=== PATIENT | female | born 1975 | race Caucasian/White ===

== ENCOUNTER 2018-08-09 12:46 | Emergency (ER) | payer SELFPAY ==
--- NOTE | 2018-08-09 13:49 | EDM.PDOC ---
ED HPI GENERAL MEDICAL PROBLEM - General Chief Complaint: Skin Complaint Stated Complaint: ALL OVER RASH Time Seen by Provider: 08/09/18 13:45 - History of Present Illness INITIAL COMMENTS - FREE TEXT/NARRATIVE: HISTORY AND PHYSICAL: History of present illness: The patient is a healthy 42-year-old female who presents with a rash mostly concentrated on her hands and forearms bilaterally as well as some scattered areas on her anterior neck and some areas on her face. This rash started about 2 days ago and she is concerned that she may have contacted something at work that triggered it. She says it is itchy and burning and she has not tried anything [id number]. She has no oral swelling or pain no shortness of breath and no other systemic issues. Review of systems: As per history of present illness and below otherwise all systems reviewed and negative. Past medical history: As per history of present illness and as reviewed below otherwise noncontributory. Surgical history: As per history of present illness and as reviewed below otherwise noncontributory. Social history: No reported history of drug or alcohol abuse. Family history: As per history of present illness and as reviewed below otherwise noncontributory. Physical exam: General: Well-developed well-nourished female who is nontoxic and speaking clearly and easily in the ED. Vital signs are noted by me HEENT: Atraumatic, normocephalic, pupils reactive, negative for conjunctival pallor or scleral icterus, mucous membranes moist, throat clear, neck supple, nontender, trachea midline. There are no oral pharyngeal lesions and no soft tissue swelling is seen of the face or mouth Lungs: Clear to auscultation, breath sounds equal bilaterally, chest nontender. No wheezing or stridor Heart: S1S2, regular rate and rhythm no overt murmurs Abdomen: Soft, nondistended, nontender. NABS Pelvis: Deferred Genitourinary: Deferred. Rectal: Deferred. Extremities: Atraumatic, negative for cords or calf pain. Neurovascular unremarkable. Neuro: Awake, alert, oriented. Cranial nerves II through XII unremarkable. Cerebellum unremarkable. Motor and sensory unremarkable throughout. Exam nonfocal. Skin: There are multiple urticarial areas seen on the hands and forearms bilaterally as well as some scattered areas on the anterior neck and chest wall and one or 2 on the face and neck as well as 2 or 3 on the lumbar spine area. There are no vesicles seen and no surrounding erythema Diagnostics: [] Therapeutics: Vistaril by mouth Impression: Contact reaction Definitive disposition and diagnosis as appropriate pending reevaluation and review of above. - Related Data Allergies Allergy/AdvReac Type Severity Reaction Status Date / Time No Known Allergies Allergy Verified 08/09/18 13:14 Home Meds: Home Meds . [No Known Home Meds] 08/09/18 [History] Past Medical History - Past Health History Medical/Surgical History: Denies Medical/Surgical History Social & Family History - Family History Family Medical History: Noncontributory - Tobacco Use Smoking Status *Q: Current Every Day Smoker Years of Tobacco use: 15 Packs/Tins Daily: 0.5 - Caffeine Use Caffeine Use: Reports: Coffee - Recreational Drug Use Recreational Drug Use: No ED ROS GENERAL - Review of Systems Review Of Systems: ROS reveals no pertinent complaints other than HPI. ED EXAM, SKIN/RASH Exam: See Below (See dictation) Course - Vital Signs Last Recorded V/S: Last Vital Signs Temp 36.5 C 08/09/18 13:13 Pulse 93 08/09/18 13:13 Resp 18 08/09/18 13:13 BP 131/74 08/09/18 13:13 Pulse Ox 95 08/09/18 13:13 - Orders/Labs/Meds Orders: Active Orders 24 hr Category Date Time Status hydrOXYzine pamoate [Vistaril] Med 08/09/18 13:51 Once 25 mg PO ONETIME ONE Departure - Departure Time of Disposition: 13:53 Disposition: Home, Self-Care 01 Condition: Good Clinical Impression: Contact allergic reaction - Discharge Information Referrals: PCP,None [Primary Care Provider] - Forms: ED Department Discharge Additional Instructions: The following information is given to patients seen in the emergency department who are being discharged to home. This information is to outline your options for follow-up care. We provide all patients seen in our emergency department with a follow-up referral. The need for follow-up, as well as the timing and circumstances, are variable depending upon the specifics of your emergency department visit. If you don't have a primary care physician on staff, we will provide you with a referral. We always advise you to contact your personal physician following an emergency department visit to inform them of the circumstance of the visit and for follow-up with them and/or the need for any referrals to a consulting specialist. The emergency department will also refer you to a specialist when appropriate. This referral assures that you have the opportunity for followup care with a specialist. All of these measure are taken in an effort to provide you with optimal care, which includes your followup. Under all circumstances we always encourage you to contact your private physician who remains a resource for coordinating your care. When calling for followup care, please make the office aware that this follow-up is from your recent emergency room visit. If for any reason you are refused follow-up, please contact the [facility] emergency department at and ask to speak to the emergency department charge nurse. [facility] [address] [address] Continue to monitor the symptoms and call and schedule a follow-up appointment in our clinic with one of our providers for reevaluation and further care. Use [id number] Benadryl if 2 mg every 6 hours for the next 36 hours and then every 6 hours as needed. Please take the Medrol Dosepak as prescribed starting today. Return to ER as needed and as discussed - My Orders Last 24 Hours: My Active Orders 08/09/18 13:51 hydrOXYzine pamoate [Vistaril] 25 mg PO ONETIME ONE - Assessment/Plan Last 24 Hours: My Active Orders 08/09/18 13:51 hydrOXYzine pamoate [Vistaril] 25 mg PO ONETIME ONE
[2018-08-09] MEDS ORDERED: hydrOXYzine Pamoate 25 MG Cap PO ONE (13:51)
== END 2018-08-09 14:32 | disposition home or self-care (01) ==
LOC: MW.ED 12:46
DX: L50.0 Allergic urticaria (principal); F17.210 Nicotine dependence, cigarettes, uncomplicated
CPT/HCPCS: 99282; A9270

== ENCOUNTER 2019-04-10 16:03 | Emergency (ER) | payer OTHER, MEDICAID ==
--- NOTE | 2019-04-10 17:07 | EDM.PDOC ---
ED HPI GENERAL MEDICAL PROBLEM - General Chief Complaint: ENT Problem Stated Complaint: SINUS INFECTION Time Seen by Provider: 04/10/19 16:40 - History of Present Illness INITIAL COMMENTS - FREE TEXT/NARRATIVE: HPI 43-year-old female presents for evaluation of sinus congestion, bilateral ear pressure and fullness for approximately 3 weeks company by a gradual onset typical headache that is most prominent in the morning and reduces after the patient treats deferred sinus congestion with nasal spray. Headache has been responsive to acetaminophen but recurs. No identifiable carbon monoxide sources , no history of DVT, PE, no recent pregnancies, currently not . No changes in vision or hearing. Denies a history trauma, diabetes, dental, or jaw pain. M/S/F/SocHx notable for: please see HPI; remainder reviewed with patient and in chart. ROS: Negative constitutional, eye, cardiovascular, pulmonary, GI, , MSK, skin , neurologic, psychiatric, endocrine unless noted in the HPI. Exam HR 83, RR 18, BP 120/87, T 36.3C, SaO2 94% on room air. Gen: Pleasant, non-toxic appearing, resting comfortably. Head: Normocephalic, atraumatic. Ears - Left TM with a dependent purulent effusion, with the external auditory canal without erythema, inflammation, or swelling, mastoid nontender without overlying erythema, swelling, tenderness to palpation, or warmth. - Right TM with a dependent purulent effusion, with the external auditory canal without erythema, inflammation, or swelling, mastoid nontender without overlying erythema, swelling, tenderness to palpation, or warmth. Eyes - Bilateral eyes without injection, swelling, or discharge, EOMI without pain, no proptosis or periorbital erythema, swelling, warmth, or tenderness. Mouth - Anterior oropharynx with MMM, no lesions appreciated, floor of the mouth is soft and without swelling. Posterior oropharynx without swelling, exudate, erythema, lesions, or post-nasal drip, uvula midline. Nose - Nares without crusting or discharge. Neck - Neck supple without posterior anterior cervical chain lymphadenopathy bilaterally. Resp: Clear to auscultation bilaterally, normal work of breathing without accessory muscle usage. Card: Regular rate and rhythm with no murmurs, rubs or gallops. Extremities warm and well perfused. GI: Non-tender to palpation throughout all quadrants, no masses or organomegaly appreciated. : Deferred MSK: No visible deformities, strength and tone visually normal. Skin: Normal color with no visible lesions. Neuro: alert and oriented 3, no facial asymmetry, no gaze preference, no slurring of speech. Pupils equal and reactive, EOMI, no facial asymmetry, no nystagmus, phonation intact, SCM 5/5 bilaterally. Cerebellar: bilateral upper extremities without dysmetria. Heme: Deferred MDM Previous chart, nursing note, and vitals reviewed. A: 43-year-old female presents for evaluation of sinus congestion, bilateral ear pressure and fullness for approximately 3 weeks company by a gradual onset typical headache that is most prominent in the morning and reduces after the patient treats deferred sinus congestion with nasal spray. Evaluation: history and exam consistent with chronic bilateral otitis media, suspect concurrent sinusitis complement, unclear if due to an ongoing bacterial process or resolved infection now with continuation due to rhinitis medicamentosa. Recommend discontinuation of OTC nasal spray, prescribed take his own, due to effusion spine each year the patient was prescribed azithromycin and instructed to take ibuprofen for headache, patient to follow up with PCP in 3-4 days for repeat evaluation. No concerning features identified with respect to the patients headaches, i.e. neuro imaging is not presently warranted nor is an LP. Impression: sinusitis, otitis media, headache. sinus Pain Score (Numeric/FACES): 3 - Related Data Allergies Allergy/AdvReac Type Severity Reaction Status Date / Time No Known Allergies Allergy Verified 04/10/19 16:21 Home Meds: Home Meds Azithromycin [Zithromax] 250 mg PO DAILY #6 tab 04/10/19 [Rx] Escitalopram [Lexapro] 20 mg PO DAILY 04/10/19 [History] Fluticasone Furoate [Flonase Sensimist] 9.1 ml NS DAILY #1 spray.susp 04/10/19 [ Rx] Meloxicam [Qmiiz Odt] 1 tab PO DAILY 04/10/19 [History] Past Medical History - Past Health History Medical/Surgical History: Denies Medical/Surgical History HEENT History: Reports: None Cardiovascular History: Reports: None Respiratory History: Reports: None Gastrointestinal History: Reports: None Genitourinary History: Reports: None 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 Musculoskeletal History: Reports: None Neurological History: Reports: None Psychiatric History: Reports: None Endocrine/Metabolic History: Reports: None Hematologic History: Reports: None Immunologic History: Reports: None Oncologic (Cancer) History: Reports: None Dermatologic History: Reports: None - Infectious Disease History Infectious Disease History: Reports: Hepatitis C - Past Surgical History Head Surgeries/Procedures: Reports: None HEENT Surgical History: Reports: None Cardiovascular Surgical History: Reports: None Respiratory Surgical History: Reports: None GI Surgical History: Reports: None Female Surgical History: Reports: None Endocrine Surgical History: Reports: None Neurological Surgical History: Reports: None Musculoskeletal Surgical History: Reports: None Oncologic Surgical History: Reports: None Dermatological Surgical History: Reports: None Social & Family History - Family History Family Medical History: Noncontributory - Tobacco Use Smoking Status *Q: Current Every Day Smoker Years of Tobacco use: 15 Packs/Tins Daily: 0.2 - Caffeine Use Caffeine Use: Reports: Coffee - Recreational Drug Use Recreational Drug Use: No ED ROS GENERAL - Review of Systems Review Of Systems: See Below ED EXAM, GENERAL - Physical Exam Exam: See Below Course - Vital Signs Last Recorded V/S: Last Vital Signs Temp 36.3 C 04/10/19 16:22 Pulse 83 04/10/19 16:22 Resp 18 04/10/19 16:22 BP 127/87 04/10/19 16:22 Pulse Ox 94 L 04/10/19 16:22 Departure - Departure Time of Disposition: 17:04 Disposition: Home, Self-Care 01 Clinical Impression: Otitis media - Discharge Information Prescriptions: Azithromycin [Zithromax] 250 mg PO DAILY #6 tab Fluticasone Furoate [Flonase Sensimist] 9.1 ml NS DAILY #1 spray.susp Referrals: PCP,None [Primary Care Provider] - Additional Instructions: You were in seen in the [facility] Emergency Department for evaluation of of your pain, headache, and sinus congestion. You are believed to have sinusitis with ongoing bilateral ear infections. You have been prescribed azithromycin and fluticasone nasal spray. Please discontinue taking [id number] nasal spray decongestants. You may take ibuprofen and acetaminophen as directed below for treatment of your headache. Please read and follow all of the instructions below. Please follow up with your primary care physician in 3-4 days for repeat evaluation. When calling for follow-up care, please make the office aware that this follow-up is from your recent emergency room visit. If for any reason you are refused follow-up, please contact the [facility] Emergency Department at and asked to speak to the emergency department charge nurse. Your care today was limited to identifying and treating emergent medical problems only. Many people have subtle differences in their test results that require follow up with their outpatient physician(s) to correctly determine if this represents a normal variation or concerning abnormality with respect to your specific health. The care given to you today was limited to identifying and treating emergent medical problems - you need to request a copy of all of your medical records from today's visit and follow up with your outpatient physician(s) to review both today's visit and your overall health. If you have any new symptoms or if you are at all concerned about your health please return immediately to the emergency department. Acute otitis media - Infection of the middle ear. You were diagnosed with an infection of middle ear. These infections are most commonly caused by viruses and bacteria. Based upon the exam today, it appears that you have a bacterial infection. Expect the symptoms to remain similar or slightly worsen over the next 12- 24 hours. After that you should start noticing an improvement with treatment. Please take the full course of the prescribed antibiotic, even if you feel better. However, if you believe you are having a drug reaction, please discontinue the medication and follow up with your primary care physician or return to the emergency department (please read the drug precautions below). Please return to the emergency department if you have a headache, neck stiffness, rash, becomes sensitive to bright light, are lethargic, or if you are otherwise concerned about your health. If you have not significantly improved over the next 2-3 days, please follow up promptly with your physician for a repeat evaluation. Rarely a new infection may be present or a change in antibiotics may be needed. Azithromycin (Brand Names: Zmax) Please take this medication as prescribed. Please take the medication for the full duration of the precription. If you feel you are experiencing a side effect, please call your physician or the emergency department. Azithromycin Side Effects: Stomach upset, diarrhea/loose stools, nausea, vomiting, or abdominal pain may occur. If any of these effects persist or worsen, tell your doctor or pharmacist promptly. Tell your doctor right away if any of these unlikely but serious side effects occur: hearing changes (such as decreased hearing, deafness), eye problems (such as drooping eyelids, blurred vision), difficulty speaking/ swallowing, muscle weakness, signs of liver problems (such as unusual tiredness , persistent nausea/vomiting, severe stomach/abdominal pain, yellowing eyes/skin , dark urine). Get medical help right away if any of these rare but serious side effects occur: fast/irregular heartbeat, severe dizziness, fainting. This medication may rarely cause a severe intestinal condition (Clostridium difficile-associated diarrhea) due to a resistant bacteria. This condition may occur during treatment or weeks to months after treatment has stopped. Do not use anti-diarrhea products or narcotic pain medications if you have any of the following symptoms because these products may make them worse. Tell your doctor right away if you develop: persistent diarrhea, abdominal or stomach pain/ cramping, blood/mucus in your stool. Use of this medication for prolonged or repeated periods may result in oral thrush or a new yeast infection. Contact your doctor if you notice white patches in your mouth, a change in vaginal discharge, or other new symptoms. A very serious allergic reaction to this drug is rare. However, get medical help right away if you notice any symptoms of a serious allergic reaction, including: rash, itching/swelling (especially of the face/tongue/throat), severe dizziness, trouble breathing. An allergic reaction to this medication may return even if you stop the drug. If you have an allergic reaction, continue to watch for any of the above symptoms for several days after your last dose. This is not a complete list of possible side effects. If you notice other effects not listed above, contact your doctor or pharmacist. Azithromycin may cause a condition that affects the heart rhythm (QT prolongation). QT prolongation can rarely cause serious (rarely fatal) fast/ irregular heartbeat and other symptoms (such as severe dizziness, fainting) that need medical attention right away. The risk of QT prolongation may be increased if you have certain medical conditions or are taking other drugs that may cause QT prolongation. Before using azithromycin, tell your doctor or pharmacist of all the drugs you take and if you have any of the following conditions: certain heart problems (heart failure, slow heartbeat, QT prolongation in the EKG), family history of certain heart problems (QT prolongation in the EKG, sudden cardiac ). Low levels of potassium or magnesium in the blood may also increase your risk of QT prolongation. This risk may increase if you use certain drugs (such as diuretics/"water pills") or if you have conditions such as severe sweating, diarrhea, or vomiting. Talk to your doctor about using azithromycin safely. Many drugs besides azithromycin may affect the heart rhythm (QT prolongation ), including amiodarone, disopyramide, dofetilide, dronedarone, ibutilide, pimozide, procainamide, quinidine, sotalol, among others. This drug passes into breast milk. Consult your doctor before breast- feeding. Although most antibiotics are unlikely to affect hormonal control such as pills, patch, or ring, a few antibiotics (such as rifampin, rifabutin) can decrease their effectiveness. This could result in . If you use hormonal control, ask your doctor or pharmacist for more details. You make take over the counter Acetaminophen (Tylenol) and Ibuprofen (Motrin or Aleve) as directed below for relief of pain. Take 600 mg of ibuprofen (three 200 mg tablets) with a glass of water every 6-8 hours as needed for pain or fever. Do not take if you have ulcers, GI bleeding, are , or are allergic to ibuprofen. Take 1,000 mg of acetaminophen (two 500 mg tablets) with a glass of water every 6-8 hours as needed for pain. Do not take if you are allergic to acetaminophen. If you have liver disease, please reduce your dose to a maximum of 2,000 mg per day. You can take these medications at the same time or on separate schedules. Do not take for more than 10 days. Do not take with alcohol or other acetaminophen containing medications. This medication may cause a mildly upset stomach, if so take it with a small snack. Stop taking it if you have persistent abdominal pain, heartburn, or any stomach pain. Do not take this medication if you have known ulcers. Please read the warnings at the end of this document regarding these medications. IBUPROFEN WARNING: This drug may infrequently cause serious (rarely fatal) bleeding from the stomach or intestines. Also, related drugs rarely have caused blood clots to form, resulting in heart attacks and strokes. This medication might also rarely cause similar problems. Talk to your doctor or pharmacist about the benefits and risks of treatment, as well as other possible medication choices. If you notice any of the following rare but very serious side effects, stop taking ibuprofen and seek immediate medical attention: black stools, persistent stomach/abdominal pain, vomit that looks like coffee grounds, chest pain, weakness on one side of the body, sudden vision changes, slurred speech. IBUPROFEN SIDE EFFECTS: Upset stomach, nausea, vomiting, heartburn, headache, diarrhea, constipation, drowsiness, and dizziness may occur. If any of these effects persist or worsen, notify your doctor or pharmacist promptly. If your doctor has directed you to use this medication, remember that he or she has judged that the benefit to you is greater than the risk of side effects. Many people using this medication do not have serious side effects. Tell your doctor immediately if any of these serious side effects occur: stomach pain, swelling of the hands or feet, sudden or unexplained weight gain, ringing in the ears ( tinnitus). Tell your doctor immediately if any of these unlikely but serious side effects occur: vision changes, rapid or pounding heartbeat, easy bruising or bleeding, difficult/painful swallowing. Tell your doctor immediately if any of these highly unlikely but very serious side effects occur: change in amount of urine, severe headache, very stiff neck, mental/mood changes, persistent sore throat or fever. This drug may rarely cause serious (possibly fatal) liver disease. If you notice any of the following highly unlikely but very serious side effects, stop taking ibuprofen and consult your doctor or pharmacist immediately: yellowing eyes and skin, dark urine, unusual/extreme tiredness. An allergic reaction to this drug is unlikely, but seek immediate medical attention if it occurs. Symptoms of an allergic reaction include: rash, itching/ swelling (especially of the face/tongue/throat), severe dizziness, trouble breathing. This is not a complete list of possible side effects. ACETAMINOPHEN SIDE EFFECTS: This drug usually has no side effects. If you do not have liver problems, the maximum dose of acetaminophen for adults is 4 grams per day (4000 milligrams). Taking more than the maximum daily amount may cause serious (possibly fatal) liver damage. Get medical help right away if you have any of the following symptoms of liver damage: persistent nausea/vomiting, extreme tiredness, stomach/abdominal pain, yellowing eyes/skin, dark urine. If you have liver problems, consult your doctor or pharmacist for a safe dosage of this medication. A very serious allergic reaction to this drug is rare. However , get medical help right away if you notice any symptoms of a serious allergic reaction, including: rash, itching/swelling (especially of the face/tongue/ throat), severe dizziness, trouble breathing. This is not a complete list of possible side effects. If you notice other effects not listed above, contact your doctor or pharmacist. DRUG INTERACTIONS: Your healthcare professionals (e.g., doctor or pharmacist) may already be aware of any possible drug interactions and may be monitoring you for it. Do not start, stop or change the dosage of any medicine before checking with them first. This drug should not be used with the following medications because very serious interactions may occur: cidofovir, ketorolac. If you are currently using any of these medications listed above, tell your doctor or pharmacist before starting ibuprofen. Before using this medication, tell your doctor or pharmacist of all prescription and nonprescription/herbal products you may use, especially of: anti-platelet drugs (e.g., cilostazol, clopidogrel), oral bisphosphonates (e.g., alendronate), other medications for arthritis (e.g., aspirin, methotrexate), "blood thinners" (e.g., enoxaparin, heparin, warfarin), corticosteroids (e.g., prednisone), cyclosporine, desmopressin, high blood pressure drugs (including ANUPAMA inhibitors such as captopril, angiotensin II receptor antagonists such as losartan, and beta- blockers such as metoprolol), lithium, pemetrexed, "water pills" (diuretics such as furosemide, hydrochlorothiazide, triamterene). Check all prescription and nonprescription medicine labels carefully for other pain/fever drugs ( NSAIDs such as aspirin, celecoxib, naproxen). These drugs are similar to ibuprofen, so taking one of these drugs while also taking ibuprofen may increase your risk of side effects. Consult your doctor or pharmacist for more details. However, if your doctor has prescribed low doses of aspirin to prevent heart attack or stroke (usually at dosages of 81-325 milligrams a day), you should continue to take the aspirin. Daily use of ibuprofen may decrease aspirin 's ability to prevent heart attack/stroke. Talk to your doctor about using a different medication (e.g., acetaminophen) to treat pain/fever. If you must take ibuprofen, talk to your doctor about possibly taking immediate-release aspirin (not enteric-coated) while also taking the ibuprofen dose apart from your aspirin dose. Do not increase your daily dose of aspirin or change the way you take aspirin/other medications without your doctor's approval. This document does not contain all possible interactions. Therefore, before using this product, tell your doctor or pharmacist of all the products you use. Keep a list of all your medications with you, and share the list with your doctor and pharmacist. Prescriptions: If you are uninsured or have financial difficulties with filling your prescription(s), you may consider using a free pharmacy discount service such as [employer] ([employer]) or [employer] ([employer]). These services allow you to search for a medication on your phone (or computer) and obtain a coupon that usually has a significant discount from the list wells at a pharmacy. Your physician as well as [facility] does not have a financial relationship with either of these services. You may also wish to speak with your physician to determine if lower cost prescriptions are possible. Obtaining primary care: 1. [facility] provides pediatrics (children), family medicine (children, adults, and some obstetrical care), and internal medicine (adults). Further specialty care is also available. Same day appointments are available. They may be contacted at [phone] and are open Tuesday through Tuesday 8 AM to 5 PM. The [facility] are located at [facility], [address] [place] [address]. 2. [facility] offers family medicine, internal medicine, womens health, and further specialty care. [facility] may be contacted at [phone]. [facility] is located at [address] [place] [address]. 3. If you have health insurance, please also contact your insurer for a list of accepting providers under your policy, you may contact these providers for further health care. Occupational health: Work related injuries may consider following up with [facility], . Occupational health services are located at [address] [place] [id number] and are open Tuesday through Tuesday from 7: 30 am to 5:00 pm. Obstetrical and Gynecological Care: [facility], , Tuesday through Tuesday 8 AM to 5 PM. [address] [place] [address]. Eyecare: If you have an eye injury you should follow up with your production line assembler or with [facility], at [phone] or [phone] , they are located at [address] [place] [address]. [facility] Hoang Araujo DDS. [address] [place], [place]. Ph. [phone] Juancarlos Araujo DDS MS. [address] [facility], [place], [place]. Ph. Carlos Rawls DDS. 10 04/[address] [place] [address]. Ph. [phone] Vargas Lima DDS. [address] [facility] 4 [place], [place]. Ph. [phone] Luis Wilson DDS PC. [address] [facility] [address] [place], [place]. Ph. Eugenie Arguelles DDS. [address] [facility] [address] [facility]. Ph. [phone] [facility]. [address] [place], [place]. Ph. [phone] [facility]. [address] [place], [place], [place]. Ph. [phone] [facility] [address] [place] [phone]. Ph. [facility]. [address] [place] [address] [address] [place], [place]. Ph. [facility]. [address] [place], [place]. Ph. [phone] Sepsis Event Note - Evaluation Sepsis Screening Result: No Definite Risk - Focused Exam Vital Signs: Vital Signs Temp Pulse Resp BP Pulse Ox 04/10/19 16:22 36.3 C 83 18 127/87 94 L Date Exam was Performed: 04/10/19 Time Exam was Performed: 17:04
== END 2019-04-10 17:30 | disposition home or self-care (01) ==
LOC: MW.ED 16:03
CPT/HCPCS: 99283

== ENCOUNTER 2019-05-28 19:48 | Emergency (ER) | payer MEDICAID ==
--- NOTE | 2019-05-28 21:24 | EDM.PDOC ---
ED HPI GENERAL MEDICAL PROBLEM - General Chief Complaint: ENT Problem Stated Complaint: SINUS Time Seen by Provider: 05/28/19 21:23 Source of Information: Reports: Patient History Limitations: Reports: No Limitations - History of Present Illness INITIAL COMMENTS - FREE TEXT/NARRATIVE: HISTORY AND PHYSICAL: History of present illness: Patient is a 43-year-old female presents to the ED With complaint of fever, congestion, and ear pain. She states for the past 3 days she has had fever of 102F. She reports headache and pain in her sinuses. She states she was treated for ear infection twice in the last 3 months. She reports still feeling like she has fluid in her left ear. She denies cough, nausea, vomiting, abdominal pain. Patient has taken some sudafed today Review of systems: As per history of present illness and below otherwise all systems reviewed and negative. Past medical history: As per history of present illness and as reviewed below otherwise noncontributory. Surgical history: As per history of present illness and as reviewed below otherwise noncontributory. Social history: No reported history of drug or alcohol abuse. Family history: As per history of present illness and as reviewed below otherwise noncontributory. Physical exam: General: Patient sitting comfortably in no acute distress and nontoxic appearing HEENT: Maxillary sinus tenderness to palpation. TMs are clear bilaterally. No mastoid tenderness. Atraumatic, normocephalic, pupils reactive, negative for conjunctival pallor or scleral icterus, mucous membranes moist, throat clear, neck supple, nontender, trachea midline. No meningeal signs. Lungs: Clear to auscultation, breath sounds equal bilaterally, chest nontender. Heart: S1S2, regular, negative for clicks, rubs, or overt murmur. Abdomen: Soft, nondistended, nontender. Negative for masses or hepatosplenomegaly. Negative for costovertebral tenderness. No rigidity, rebound , guarding. Pelvis: Stable nontender. Genitourinary: Deferred. Rectal: Deferred. Extremities: Atraumatic, negative for cords or calf pain. Neurovascular unremarkable. Neuro: Awake, alert, oriented. Cranial nerves II through XII unremarkable. Cerebellum unremarkable. Motor and sensory unremarkable throughout. Exam nonfocal. Notes: Diagnostics: none Therapeutics: none Prescriptions: augmentin Impression: acute sinusitis Plan: Take antibiotic as instructed Alternate tylenol and motrin as needed Follow up with primary care provider and ENT Return to ED as needed as discussed Definitive disposition and diagnosis as appropriate pending reevaluation and review of above. ear Pain Score (Numeric/FACES): 8 - Related Data Allergies Allergy/AdvReac Type Severity Reaction Status Date / Time No Known Allergies Allergy Verified 04/10/19 16:21 Home Meds: Home Meds . [No Known Home Meds] 05/28/19 [History] Past Medical History - Past Health History Medical/Surgical History: Denies Medical/Surgical History HEENT History: Reports: None Cardiovascular History: Reports: None Respiratory History: Reports: None Gastrointestinal History: Reports: None Genitourinary History: Reports: None [employer]ST History: Reports: None Musculoskeletal History: Reports: None Neurological History: Reports: None Psychiatric History: Reports: None Endocrine/Metabolic History: Reports: None Hematologic History: Reports: None Immunologic History: Reports: None Oncologic (Cancer) History: Reports: None Dermatologic History: Reports: None - Infectious Disease History Infectious Disease History: Reports: Hepatitis C - Past Surgical History Head Surgeries/Procedures: Reports: None HEENT Surgical History: Reports: Adenoidectomy, Myringotomy w Tube(s), Tonsillectomy Cardiovascular Surgical History: Reports: None Respiratory Surgical History: Reports: None GI Surgical History: Reports: None Female Surgical History: Reports: Tubal Ligation Other Female Surgeries/Procedures: tubal lig reversal Endocrine Surgical History: Reports: None Neurological Surgical History: Reports: None Musculoskeletal Surgical History: Reports: Arthroscopic Procedure Oncologic Surgical History: Reports: None Dermatological Surgical History: Reports: None Social & Family History - Family History Family Medical History: Noncontributory - Tobacco Use Smoking Status *Q: Current Every Day Smoker Years of Tobacco use: 15 Packs/Tins Daily: 0.5 - Caffeine Use Caffeine Use: Reports: Coffee - Recreational Drug Use Recreational Drug Use: No ED ROS ENT - Review of Systems Review Of Systems: Comprehensive ROS is negative, except as noted in HPI. ED EXAM, ENT - Physical Exam Exam: See Below (see dictation) Course - Vital Signs Last Recorded V/S: Last Vital Signs Temp 98.5 F 05/28/19 21:12 Pulse 107 H 05/28/19 21:12 Resp 18 05/28/19 21:12 BP 124/86 05/28/19 21:12 Pulse Ox 94 L 05/28/19 21:12 Departure - Departure Time of Disposition: 21:29 Disposition: Home, Self-Care 01 Condition: Good Clinical Impression: Acute sinusitis - Discharge Information Instructions: Sinusitis, Adult, [id number] Referrals: PCP,None [Primary Care Provider] - Forms: ED Department Discharge Additional Instructions: The following information is given to patients seen in the emergency department who are being discharged to home. This information is to outline your options for follow-up care. We provide all patients seen in our emergency department with a follow-up referral. The need for follow-up, as well as the timing and circumstances, are variable depending upon the specifics of your emergency department visit. If you don't have a primary care physician on staff, we will provide you with a referral. We always advise you to contact your personal physician following an emergency department visit to inform them of the circumstance of the visit and for follow-up with them and/or the need for any referrals to a consulting specialist. The emergency department will also refer you to a specialist when appropriate. This referral assures that you have the opportunity for follow-up care with a specialist. All of these measure are taken in an effort to provide you with optimal care, which includes your follow-up. Under all circumstances we always encourage you to contact your private physician who remains a resource for coordinating your care. When calling for follow-up care, please make the office aware that this follow-up is from your recent emergency room visit. If for any reason you are refused follow-up, please contact the [facility] Emergency Department at and asked to speak to the emergency department charge nurse. [facility] [address] [place] [address] [id number] [address] [address] [facility] ENT - Dr. Fowler [phone] Take antibiotic as instructed Alternate tylenol and motrin as needed Follow up with primary care provider and ENT Return to ED as needed as discussed Sepsis Event Note - Evaluation Sepsis Screening Result: No Definite Risk - Focused Exam Vital Signs: Vital Signs Temp Pulse Resp BP Pulse Ox 05/28/19 21:12 98.5 F 107 H 18 124/86 94 L Date Exam was Performed: 05/28/19 Time Exam was Performed: 21:36
== END 2019-05-28 21:42 | disposition home or self-care (01) ==
LOC: MW.ED 19:48
DX: J01.90 Acute sinusitis, unspecified (principal); F17.210 Nicotine dependence, cigarettes, uncomplicated
CPT/HCPCS: 99283